=== PATIENT | female | born 1970 | race Caucasian/White ===

== ENCOUNTER 2022-05-26 09:16 | Emergency (ER) | payer OTHER ==
[2022-05-26] MEDS ORDERED: Morphine 4 MG/ML VIAL ONE (10:21)
[2022-05-26] MEDS ORDERED: Orphenadrine Citrate 60 MG/2 ML VIAL IM SCH (11:15)
== END 2022-05-26 12:35 | disposition home or self-care (01) ==
LOC: CSHERS 09:16
DX: M54.12 Radiculopathy, cervical region (principal)
CPT/HCPCS: 72125; 96372; J2270; J2360

== ENCOUNTER 2022-06-09 13:14 | Emergency (ER) | payer OTHER ==
[2022-06-09 14:41] LABS: #Basophils 0.1 10x3/uL (0.0-0.2); #Eosinphils 0.7 10x3/uL (0.0-0.5); #Monocytes 0.6 10x3/uL (0.0-1.1); #Neutrophils 4.1 10x3/uL (1.5-8.4); %Basophils 1.4 % (0.0-2.0); %Eosinophils 7.8 % (0.0-6.0); %Lymphocytes 33.9 % (18.0-47.0); %Monocytes 6.7 % (0.0-10.0); Hemoglobin 14.1 g/dL (12.0-15.5); Mean Corpuscular HGB CONC 33.8 g/dL (32.0-36.0); Mean Corpuscular Hemoglobin 29.4 pg (27.0-33.0); Mean Corpuscular Volume 87.1 fl (81.6-98.3); Mean Platelet Volume 8.8 fl (7.4-10.4); Platelet Count 428 10x3/uL (150-450); RBC Distribution Width 13.4 % (11.5-14.5); Red Blood Cell (RBC) Count 4.79 10x6/uL (3.90-5.03); White Blood Cell (WBC) Count 8.3 10x3/uL (3.5-10.5)
[2022-06-09 14:49] LABS: ALT (SGPT) 82 U/L (8-55); AST (SGOT) 23 U/L (5-34); Albumin 4.3 g/dL (3.5-5.0); Alkaline Phosphatase 63 U/L (40-110); Anion Gap 14 mmol/L (10-20); BHCG - Serum Negative (NEGATIVE); BUN (Urea Nitrogen) 14 mg/dL (7.0-18.7); Bilirubin, Total 0.3 mg/dL (0.2-1.2); Calc. Creatinine Clearance 0 mL/min (70-130); Calcium 9.7 mg/dL (7.8-10.44); Carbon Dioxide 26 mmol/L (22-29); Chloride 103 mmol/L (98-107); Estimated GFR 56; Globulin 3.1 g/dL (2.4-3.5); Glucose 110 mg/dL (70-105); Lipase 43 U/L (8-78); Potassium 3.9 mmol/L (3.5-5.1); Pregs Control Background? CLEAR/WHITE (CLR/WHITE); Pregs Control Bar Appear? YES (CONTROL BAR); Protein, Total 7.4 g/dL (6.0-8.3); Sodium 139 mmol/L (136-145)
[2022-06-09 15:24] LABS: Bilirubin Neg (Negative); Blood, Urine Negative (Negative); Clarity Clear (Clear); Glucose, Urine (Dipstick) Normal (Negative); Ketone, Urine Negative (Negative); Leukocyte Negative (Negative); Nitrite Negative (Negative); Protein, Urine (Dipstick) Negative (Neg-Trace); Specific Gravity, Urine 1.015 (1.005-1.030); Urobilinogen Normal mg/dL (Less than 2)
[2022-06-09] MEDS ORDERED: Ketorolac Tromethamine 30 MG/ML VIAL ONE (15:29)
[2022-06-09] MEDS ORDERED: Iopamidol 300 61% 100 ML VIAL FS ONE (15:58)
== END 2022-06-09 17:10 | disposition home or self-care (01) ==
LOC: CSHERS 13:14
DX: R10.11 Right upper quadrant pain (principal); I10 Essential (primary) hypertension; Z79.899 Other long term (current) drug therapy
CPT/HCPCS: 71045; 74177; 80053; 81003; 83690; 84703; 85025; 93005; 96374; J1885; Q9967

== ENCOUNTER 2023-01-25 09:02 | Outpatient (CLI) | payer OTHER | END 2023-01-25 09:03 | disposition home or self-care (01) | LOC: CSHRAD 09:02 | PROVIDERS: ATTEND Neurological Surgery | DX: M54.2 Cervicalgia (principal); M54.50 Low back pain, unspecified; M54.6 Pain in thoracic spine; Z98.1 Arthrodesis status | CPT/HCPCS: 72040 ==